=== PATIENT | female | born 1940 | race Caucasian/White ===

== ENCOUNTER → 2019-09-03 20:25 | Outpatient (CLI) | payer MEDICARE, BC ==
[2019-09-03 20:50] LABS: BILIRUBIN NEGATIVE (NEGATIVE); GLUCOSE NEGATIVE (NEGATIVE); KETONE NEGATIVE (NEGATIVE); NITRITE POSITIVE (NEGATIVE); UROBILINOGEN NORMAL (NORMAL)
[2019-09-03 20:52] LABS: BACTERIA MANY /hpf (NEGATIVE); EPITHELIAL CELLS 0-5 /hpf (0-5); RED CELLS - URINE 0-5 /hpf (0-5)
== END | disposition home or self-care (01) ==
LOC: D.LABREF 20:25
PROVIDERS: ATTEND Orthopaedic Surgery
DX: Z48.3 Aftercare following surgery for neoplasm (principal)

== ENCOUNTER → 2019-10-01 16:49 | Outpatient (CLI) | payer MEDICARE, BC ==
[2019-10-01 17:42] LABS: BILIRUBIN NEGATIVE (NEGATIVE); EPITHELIAL CELLS 0-5 /hpf (0-5); GLUCOSE NEGATIVE (NEGATIVE); KETONE NEGATIVE (NEGATIVE); NITRITE NEGATIVE (NEGATIVE); RED CELLS - URINE 0-5 /hpf (0-5); SPECIFIC GRAVITY 1.015 (1.005-1.020); UROBILINOGEN NORMAL (NORMAL); WHITE CELLS - URINE 25-50 /hpf (NEGATIVE)
[2019-10-01 17:43] LABS: BACTERIA FEW /hpf (NEGATIVE)
== END | disposition home or self-care (01) ==
LOC: D.LABREF 16:49
PROVIDERS: ATTEND Family Medicine
DX: Z48.3 Aftercare following surgery for neoplasm (principal)

== ENCOUNTER → 2019-11-07 16:43 | Outpatient (CLI) | payer MEDICARE, BC ==
[2019-11-07 17:28] LABS: BILIRUBIN NEGATIVE (NEGATIVE); GLUCOSE NEGATIVE (NEGATIVE); KETONE NEGATIVE (NEGATIVE); NITRITE NEGATIVE (NEGATIVE); UROBILINOGEN NORMAL (NORMAL)
[2019-11-07 17:29] LABS: BACTERIA FEW /hpf (NEGATIVE); EPITHELIAL CELLS 0-5 /hpf (0-5); RED CELLS - URINE OCC /hpf (0-5)
== END | disposition home or self-care (01) ==
LOC: D.LABREF 16:43
PROVIDERS: ATTEND Family Medicine
DX: N39.0 Urinary tract infection, site not specified (principal)

== ENCOUNTER → 2019-11-17 15:55 | Outpatient (CLI) | payer MEDICARE, BC ==
[2019-11-17 21:27] LABS: BILIRUBIN NEGATIVE (NEGATIVE); GLUCOSE NEGATIVE (NEGATIVE); KETONE NEGATIVE (NEGATIVE); NITRITE NEGATIVE (NEGATIVE); UROBILINOGEN NORMAL (NORMAL)
== END | disposition home or self-care (01) ==
LOC: D.LABREF 15:55
PROVIDERS: ATTEND Family Medicine
DX: N39.0 Urinary tract infection, site not specified (principal)

== ENCOUNTER → 2019-12-19 18:36 | Outpatient (CLI) | payer MEDICARE, BC ==
[2019-12-19 20:07] LABS: BACTERIA MANY /hpf (NEGATIVE); BILIRUBIN NEGATIVE (NEGATIVE); GLUCOSE NEGATIVE (NEGATIVE); KETONE NEGATIVE (NEGATIVE); NITRITE POSITIVE (NEGATIVE); UROBILINOGEN NORMAL (NORMAL); WHITE CELLS - URINE 0-5 /hpf (NEGATIVE)
== END | disposition home or self-care (01) ==
LOC: D.LABREF 18:36
PROVIDERS: ATTEND Family Medicine
DX: N39.0 Urinary tract infection, site not specified (principal)

== ENCOUNTER → 2019-12-26 23:37 | Outpatient (CLI) | payer MEDICARE, BC ==
[2019-12-27 00:11] LABS: BACTERIA MANY /hpf (NEGATIVE); BILIRUBIN NEGATIVE (NEGATIVE); EPITHELIAL CELLS RARE /hpf (0-5); GLUCOSE NEGATIVE (NEGATIVE); KETONE NEGATIVE (NEGATIVE); NITRITE NEGATIVE (NEGATIVE); UROBILINOGEN NORMAL (NORMAL); WHITE CELLS - URINE 25-50 /hpf (NEGATIVE)
== END | disposition home or self-care (01) ==
LOC: D.LABREF 23:37
PROVIDERS: ATTEND Family Medicine
DX: N39.0 Urinary tract infection, site not specified (principal)

== ENCOUNTER → 2020-02-05 15:36 | Outpatient (CLI) | payer MEDICARE, BC ==
[2020-02-05 15:47] LABS: BILIRUBIN NEGATIVE (NEGATIVE); KETONE NEGATIVE (NEGATIVE); NITRITE NEGATIVE (NEGATIVE); UROBILINOGEN NORMAL (NORMAL)
[2020-02-05 15:51] LABS: RED CELLS - URINE NONE SEEN /hpf (0-5)
[2020-02-05 15:52] LABS: AMORPHOUS SEDIMENT >1+ /lpf (NONE SEEN); BACTERIA MANY /hpf (NONE SEEN); EPITHELIAL CELLS 0-5 /hpf (0-5)
== END | disposition home or self-care (01) ==
LOC: D.LABREF 15:36
PROVIDERS: ATTEND Family Medicine
DX: N31.9 Neuromuscular dysfunction of bladder, unspecified (principal); Z46.6 Encounter for fitting and adjustment of urinary device

== ENCOUNTER → 2020-08-23 13:50 | Outpatient (CLI) | payer MEDICARE, BC ==
[2020-03-25 16:00] VITALS: BMI 45.4
[~2020-08-23 13:50] MED LIST: BACLOFEN10 MG PO; CYCLOBENZAPRINE10 MG PO; GABAPENTIN100 MG PO; HYDROCODON-ACE1 EAC7 PO; K-DUR20 MEQ PO; LEVOTHYROXINE137 MCG PO; LIPITOR20 MG PO; MIRALAX17 GM PO; PROTONIX40 MG PO
[2020-08-23 14:34] LABS: BACTERIA MANY HPF (NONE SEEN); BILIRUBIN NEGATIVE (NEGATIVE); KETONE NEGATIVE (NEGATIVE); NITRITE POSITIVE (NEGATIVE); WHITE CELLS - URINE 25-50 HPF (0-4)
== END | disposition home or self-care (01) ==
LOC: D.LABREF 13:50
PROVIDERS: ATTEND Family Medicine
DX: N39.0 Urinary tract infection, site not specified (principal)

== ENCOUNTER → 2020-09-22 10:56 | Outpatient (CLI) | payer MEDICARE, BC ==
[2020-03-25 16:00] VITALS: BMI 45.4
[2020-09-22 12:55] LABS: NITRITE NEGATIVE (NEGATIVE)
[2020-09-22 12:56] LABS: BILIRUBIN NEGATIVE (NEGATIVE); KETONE NEGATIVE (NEGATIVE); UROBILINOGEN NORMAL mg/dL (< 2)
[2020-09-22 12:57] LABS: BACTERIA FEW HPF (NONE SEEN); SQUAMOUS EPITHELIAL RARE HPF (0-4)
== END | disposition home or self-care (01) ==
LOC: D.LABREF 10:56
PROVIDERS: ATTEND Family Medicine
DX: N39.0 Urinary tract infection, site not specified (principal)

== ENCOUNTER → 2020-11-16 18:38 | Outpatient (CLI) | payer MEDICARE, BC ==
[2020-03-25 16:00] VITALS: BMI 45.4
[2020-11-16 20:35] LABS: BACTERIA MOD HPF (<MOD); BILIRUBIN NEGATIVE (NEGATIVE); KETONE NEGATIVE mg/dL (< 1+); NITRITE NEGATIVE (NEGATIVE); PH 5.5 (5.0-8.0); SQUAMOUS EPITHELIAL <1 HPF (0-4); UROBILINOGEN NORMAL mg/dL (< 2); WHITE CELLS - URINE 49 HPF (0-4)
== END | disposition home or self-care (01) ==
LOC: D.LABREF 18:38
PROVIDERS: ATTEND Family Medicine
DX: N39.0 Urinary tract infection, site not specified (principal)